=== PATIENT | female | born 1980 | race Caucasian/White ===

== ENCOUNTER 2023-10-07 16:27 | Emergency (ER) | payer BC, SELFPAY ==
[2023-10-07 16:31] VITALS: BP 160/90; PULSE 89; RESP 18; TEMP 36.4; O2SAT 95; BMI 39.9
--- NOTE | 2023-10-07 16:59 | ED.NURSE ---
Cleaned up the wound with shurclens and covered with a 4x4. needs a tdap.
[2023-10-07] MEDS: TETANUS/DIPHTH/PERTUSSIS 0.5 ML SYRINGE IM (17:03)
--- NOTE | 2023-10-07 17:08 | ED.NURSE ---
given tdap and Dr. Thrasher given local to patient.
--- NOTE | 2023-10-07 17:14 | ED.GENADULT ---
HPI - General Adult General Chief complaint: Laceration/Wound Stated complaint: bleeding/cut on left arm Time Seen by Provider: 10/07/23 16:32 History of Present Illness HPI narrative: This 43-year-old female comes in with an injury to her left forearm. Just prior to arrival she states that a ceramic bowl broke and cut into her left forearm. She is uncertain of her tetanus status but thinks that it is most likely overdue. Related Data Home Medications Medication Instructions Recorded Confirmed metformin 500 mg tablet 500 mg PO DAILY 10/07/23 10/07/23 sertraline 150 mg capsule 150 mg PO DAILY 10/07/23 10/07/23 Allergies Allergy/AdvReac Type Severity Reaction Status Date / Time No Known Drug Allergies Allergy Verified 10/07/23 16:33 Review of Systems Status of ROS: Reports: 10 or more systems reviewed and unremarkable except as noted in History and below Narrative: Constitutional: No fevers, no weight gain or loss. Eyes: No discharge. No vision changes. HENT: No congestion, no sore throat, no ear pain. Cardiovascular: No chest pain, no palpitations. Respiratory: No shortness of breath, no wheezes, no cough. Gastrointestinal: No abdominal pain, no vomiting, no diarrhea. Genitourinary: No dysuria, no hematuria. Musculoskeletal: Normal range of motion. Skin: No rashes, no pruritis. Neurological: No dizziness, weakness, sensory change, speech change. Endo/Heme/Allergies: No bruising or bleeding. No polydipsia. Pysch: no suicidality, no anxiety, no insomnia. All other systems reviewed and are negative. PFSH PFSH Social History Smoking Status: Never smoker Do you use any of these nicotine containing products: None How often do you have six or more drinks on one occasion: Never AUDIT-C Alcohol total score: 0 Exam Narrative: Exam Narrative: Constitutional: Well-developed, well-nourished, no acute distress. HEENT: Normocephalic, atraumatic. Neck: Normal range of motion. Nontender. Supple. Heart: Intact distal pulses. Lungs: No chest discomfort. No wheezes, rhonchi, or rales. Abdomen: Nontender. Back: Normal range of motion. Extremities: Normal range of motion. 2 cm irregular laceration on left forearm. Skin: Intact. No rash. Warm. No erythema or pallor. Neurologic: No altered sensation. No weakness. Alert and oriented. Psychiatric: No suicidality. No anxiety or depression. No insomnia. Nursing notes and vitals signs are reviewed. Const: Vital Signs, click to edit/add: Vital Signs - 24 hr 10/07/23 16:31 Temperature 97.5 F L Pulse Rate [Right Pulse Oximeter] 89 Respiratory Rate 18 Blood Pressure [Ri ght Upper Arm] 160/90 H Pulse Oximetry 95 Oxygen Delivery Me thod Room Air Course Vital Signs Vital signs: Initial Vital Signs Temperature 97.5 F L 10/07/23 16:31 Temperature Source Temporal Artery Scan 10/07/23 16:31 Pulse Rate 89 10/07/23 16:31 Respiratory Rate 18 10/07/23 16:31 Blood Pressure 160/90 H 10/07/23 16:31 Blood Pressure Mean 113 H 10/07/23 16:31 Blood Pressure Position Sitting 10/07/23 16:31 Pulse Oximetry 95 10/07/23 16:31 Oxygen Delivery Method Room Air 10/07/23 16:31 Vital Signs Temperature 97.5 F L 10/07/23 16:31 Pulse Rate 89 10/07/23 16:31 Respiratory Rate 18 10/07/23 16:31 Blood Pressure 160/90 H 10/07/23 16:31 Pulse Oximetry 95 10/07/23 16:31 Oxygen Delivery Method Room Air 10/07/23 16:31 Temperature 97.5 F L 10/07/23 16:31 Pulse Rate 89 10/07/23 16:31 Respiratory Rate 18 10/07/23 16:31 Blood Pressure 160/90 H 10/07/23 16:31 Pulse Oximetry 95 10/07/23 16:31 Oxygen Delivery Method Room Air 10/07/23 16:31 Medications Administered Medications: Generic Name Dose Route Start Last Admin Trade Name Freq PRN Reason Stop Dose Admin Diphtheria/Tetanus/Acell Pertussis 0.5 ml 10/07/23 16:57 10/07/23 17:03 Tetanus/Diphth/Pertussis 0.5 Ml Syringe IM 10/07/23 16:58 0.5 ml .ONCE ONE Administration Medical Decision Making MDM Narrative Medical decision making narrative: This patient comes in with a laceration to her left forearm. Her tetanus status is way overdue with a last tetanus some time occurring about 40 years ago. The patient did receive a tetanus vaccination today. After anesthesia with 1% lidocaine with epinephrine the wound was cleansed and explored to its base. 4 sutures were placed in interrupted fashion using 4.0 Ethilon suture. Instructions regarding wound care were given to the patient and the need to return for suture removal in 7-10 days. Discharge Plan Discharge Clinical Impression: Laceration Patient Disposition: Home, Self-Care Condition: Improved Additional Instructions: Keep wound clean and dry. Follow up with urgent care clinic in 7-10 days for suture removal. Return if worsening. Prescriptions: No Action sertraline 150 mg capsule 150 mg PO DAILY metformin 500 mg tablet 500 mg PO DAILY Stand Alone Forms: [employer] Info Instructions
--- NOTE | 2023-10-07 17:43 | ED.NURSE ---
Applied bacitracin to the wound and covered with telfa and wrapped with Jenny.
== END 2023-10-07 17:43 | disposition home or self-care (01) ==
LOC: ED 17:33
PROVIDERS: Emergency Provider Emergency Medicine Emergency Medical Services
DX: S51.812A Laceration without foreign body of left forearm, initial encounter (principal); W26.9XXA Contact with unspecified sharp object(s), initial encounter
CPT/HCPCS: 12001; 90471; 90715; 99283; 99284